=== PATIENT | female | born 1940 | race Hispanic/Latino ===

== ENCOUNTER → 2018-12-28 | Outpatient (CLI) | payer MEDICARE | END | disposition home or self-care (01) | LOC: RAH 13:55 | PROVIDERS: ATTEND Internal Medicine | DX: J98.4 Other disorders of lung (principal); I25.10 Atherosclerotic heart disease of native coronary artery without angina pectoris; M48.55XA Collapsed vertebra, not elsewhere classified, thoracolumbar region, initial encounter for fracture | CPT/HCPCS: 71250 ==

== ENCOUNTER → 2022-12-25 | Outpatient (CLI) | payer MEDICARE ==
[~2022-12-25] MED LIST: ACET-2893 PO; AEC81 PO; ALBU0.63 IH; CLON1PAT13 TD; CLOP75TA32 PO; ESOM20CA60 PO; FISH1CAP50 PO; FOLI1 PO; IPRNEB IH; LISI40TA9 PO; MEMA10TA55 PO; METF-444 PO; METH2.5T6 PO; METO-408 PO; MONT-39 PO; PRED5TAB PO; QUET25TA36 PO; SIMV40TA59 PO; TIZA-194 PO; TRAM-355 PO
== END | disposition home or self-care (01) ==
LOC: SHCH 10:32
PROVIDERS: ATTEND Internal Medicine Cardiovascular Disease
DX: I87.2 Venous insufficiency (chronic) (peripheral) (principal)
CPT/HCPCS: 93970

== ENCOUNTER → 2024-03-14 | Outpatient (CLI) | payer MEDICARE ==
[~2024-03-14] MED LIST changes: -ACET-2893 PO; -AEC81 PO; -ALBU0.63 IH; +AMLO10TA4 PO; +CLON1PAT12 TD; -CLON1PAT13 TD; -CLOP75TA32 PO; +DOCU-116 PO; -ESOM20CA60 PO; +FERR324T4 PO; +FISH OIL PO; +FISH1CAP27 PO; -FISH1CAP50 PO; -FOLI1 PO; +INSLAN SQ; +IOHEXOL-350 75 ML VIAL IV ONE; -IPRNEB IH; -LISI40TA9 PO; +MEMA10TA21 PO; -MEMA10TA55 PO; -METF-444 PO; +METF-446 PO; +PHEN-947 PO; +POLY17PO4 PO; -QUET25TA36 PO; +SIMV-43 PO; -SIMV40TA59 PO; -TIZA-194 PO; +TIZA2CAP PO; -TRAM-355 PO; +TRAM-543 PO
== END | disposition home or self-care (01) ==
LOC: RAH 09:51
PROVIDERS: ATTEND Urology
DX: K57.30 Diverticulosis of large intestine without perforation or abscess without bleeding (principal); N32.89 Other specified disorders of bladder; I71.43 Infrarenal abdominal aortic aneurysm, without rupture; J84.10 Pulmonary fibrosis, unspecified; M47.815 Spondylosis without myelopathy or radiculopathy, thoracolumbar region; I70.0 Atherosclerosis of aorta; R31.0 Gross hematuria; Z96.641 Presence of right artificial hip joint
CPT/HCPCS: 74178; Q9967